=== PATIENT | male | born 1980 | race Caucasian/White ===

== ENCOUNTER 2016-12-30 21:43 | Emergency (ER) | payer MEDICAID, OTHER ==
[~2016-12-30] VITALS: Ht 162.6 cm; Wt 74.3 kg
[2016-12-30 21:45] VITALS: Ht 162.6 cm; Wt 74.3 kg
[2016-12-31] MEDS ORDERED: IBUP-1542 PO (00:52)
[2016-12-31] MEDS ORDERED: AMOX1TAB10 PO (00:52)
[2016-12-31 01:04] VITALS: PULSE 77; RESP 16
--- NOTE | 2016-12-31 02:48 | ERD ---
ER Documentation Chief Complaint Date/Time DATE: 12/31/16 TIME: 02:42 Chief Complaint r ear pain for 2 weeks HPI 36-year-old male who came to the ED complaining of right ear pain 2 weeks. Denies any trauma. Denies any fever, headache, dizziness, shortness of breath, chest pain, visual or auditory disturbances. ROS All systems reviewed and are negative except as per history of present illness. Medications Home Meds Active Scripts Ibuprofen* (Motrin*) 600 Mg Tab, 600 MG PO Q6H Y for PAIN AND OR ELEVATED TEMP, #30 TAB Prov:ANDREW BOLDEN 12/31/16 Amoxicillin/Potassium Clav (Amox-Clav 875-125 mg Tablet) 875-125 mg Tab, 1 TAB PO BID for 10 Days, #20 TAB Prov:ANDREW BOLDEN 12/31/16 PMhx/Soc Medical and Surgical Hx: pt denies Medical Hx, pt denies Surgical Hx History of Surgery: No Anesthesia Reaction: No Hx Neurological Disorder: No Hx Respiratory Disorders: No Hx Cardiac Disorders: No Hx Psychiatric Problems: No Hx Miscellaneous Medical Probl: No Hx Alcohol Use: No Hx Substance Use: No Hx Tobacco Use: No Smoking Status: Never smoker Physical Exam Vitals Vital Signs Date Time Temp Pulse Resp B/P Pulse Ox O2 Delivery O2 Flow Rate FiO2 12/31/16 01:04 77 16 97 Room Air 12/30/16 21:45 98.3 74 18 129/84 97 Physical Exam Physical Exam CONST: Well-developed, well-nourished, in no acute distress. HEENT: Atraumatic. Normal Conjunctiva. EOM intact. Right tympanic membrane is bulging with white fluid inside. No perforation or drainage noted. External ear is normal. Clear oropharnyx without erythema. Moist mucous membranes. Supple. Full range of motion. No meningismus. No submandibular induration. RESP: Clear to auscultation bilaterally. No wheezing. CARDIO: Regular rate and rhythm, no murmurs ABD: Soft, non tender, non distended. Normal bowel sounds. No McBurney's point tenderness. No guarding or rigidity. No peritoneal signs. SKIN: No petechiae or rashes BACK: No midline or flank tenderness EXT: No cyanosis or edema. Distal pulses equal and bilateral NEURO: Awake and alert, appropriate for age Procedures/MDM EMERGENCY DEPARTMENT COURSE/MEDICAL DECISION MAKING This is a 36-year-old male who comes to the emergency room secondary to complaints of right ear pain for 2 week. On physical examination, right TM is bulging with white fluid without any perforation or drainage. My primary diagnosis is R otitis media. Secondary diagnosis are right ear pain Differential diagnoses considered, included but not limited to otitis externa, pharyngitis, laryngitis, tonsillitis, mastoiditis, influenza, pneumonia. Pt is hemodynamically stable upon reassessment. The patient was discharged for outpatient management with a prescription for Motrin and Augmentin. The patient was advised to followup with their PMD in 1-2 days and to return to the Emergency Department if there are any new or worsening symptoms. The patient understood and agreed with the diagnosis, treatment and plan. Patient is stable for discharge at this time. Departure Diagnosis: Primary Impression: Otitis media Otitis media type: unspecified Laterality: right Chronicity: unspecified Qualified Code: H66.91 - Right otitis media, unspecified chronicity, unspecified otitis media type Additional Impression: Right ear pain Condition: Good Patient Instructions: Otitis Media, Abx Tx (Adult) [facility] Usted se rose hecho un examen mdico de control que le indica que no est en cj condicin que requiera tratamiento urgente en el Departamento de Emergencia. Un estudio ms profundo y el tratamiento de nair condicin pueden esperar sin ningn riesgo hasta que usted sea atendida/o en el consultorio de nair mdico o cj cl emelia. Es responsabilidad suya arreglar cj aurelia para el seguimiento del raul. MANEJO DE CONDICIONES NO URGENTES EN EL FUTURO 1) Si usted tiene un mdico de atencin primaria: Usted debera llamar a nair mdico de atencin primaria antes de venir al departamento de emergencia. Despus de las horas de consultorio, nair doctor o nair asociado/a est disponible por telfono. El mdico o enfermero de jessica en el servicio telefnico puede asesorarle por bina medio para atender el problema, o raul contrario se puede programar cj aurelia. 2) Si usted no tiene un mdico de atencin primaria: Llame al mdico o clnica de referencia que aparece abajo donis las horas de consultorio para hacer cj aurelia para que le vean. CLINICAS: [facility] [phone] [facility] [phone] [facility] [phone] [facility] [phone] [place] [id number] [phone] [facility] [phone] [address] [facility]. [facility] () Usted se rose hecho un examen mdico de control que le indica que no est en cj condicin que requiera tratamiento urgente en el Departamento de Emergencia. Un estudio ms profundo y el tratamiento de nair condicin pueden esperar sin ningn riesgo hasta que usted sea atendida/o en el consultorio de nair mdico o cj cl emelia. Es responsabilidad suya arreglar cj aurelia para el seguimiento del raul. MANEJO DE CONDICIONES NO URGENTES EN EL FUTURO 1) Si usted tiene un mdico de atencin primaria: Usted debera llamar a nair mdico de atencin primaria antes de venir al departamento de emergencia. Despus de las horas de consultorio, nair doctor o nair asociado/a est disponible por telfono. El mdico o enfermero de jessica en el servicio telefnico puede asesorarle por bina medio para atender el problema, o raul contrario se puede programar cj aurelia. 2) Si usted no tiene un mdico de atencin primaria: Llame al mdico o condado institucions de referencia que aparece abajo donis las horas de consultorio para hacer cj aurelia para que le vean. SI USTED NO PUEDE PAGAR PARA MRACIA UN MEDICO puede ir a: [facility] [address] [place] [address] [facility] [address] [place], [place] [id number] [place] [address] [address] [place] [address] [facility] [address] [place] [address] Additional Instructions: Follow-up with your primary care physician in 1-2 days. Return to the emergency department immediately should you have any new or worsening symptoms, uncontrolled fevers, or other unexplained symptoms. Do not use use q-tips on your ears. Take all medications as directed. ANDREW BOLDEN Dec 31, 2016 02:48
== END 2016-12-31 01:04 | disposition home or self-care (01) ==
LOC: FTE 21:43
DX: H66.91 Otitis media, unspecified, right ear (principal)
CPT/HCPCS: 99283